=== PATIENT | female | born 1990 | race American Indian/Alaskan Native ===

== ENCOUNTER 2016-10-14 20:23 | Emergency (ER) | payer OTHER ==
[~2016-10-14] VITALS: Ht 160 cm; Wt 72.6 kg
[2016-10-14] MEDS ORDERED: LEXAPRO10 MG ORAL (20:48)
[2016-10-14] MEDS ORDERED: IBUPROFEN600 MG ORAL (21:23)
[2016-10-14] MEDS ORDERED: AUGMENTIN 875-1 EAC1 ORAL (21:23)
[2016-10-14 22:34] VITALS: BP 132/89
[2016-10-14 22:39] VITALS: BP 132/89
--- NOTE | 2016-10-18 19:42 | Emergency Room Report ---
History of Present Illness General Chief Complaint: Animal Bite Source: Patient Present Illness HPI Patient is a 26-year-old female who reportedly was bitten by dog Patient stated the dog appeared well. The patient had up-to-date tetanus vaccine. Injury occurred at work. Patient reported having bites to her chin as well as to her hip as well as to her left wrist The patient denied any numbness or weakness distally. Patient is right-hand dominant. She works as a veterinary tech. Allergies: Coded Allergies: No Known Allergies (Unverified , 10/14/16) Patient History Past Medical History: see triage record Reviewed Nursing Documentation: PMH: Agreed, PSxH: Agreed Nursing Documentation-PMH History Of Psychiatric Problem: Yes Review of Systems All Other Systems: negative except mentioned in HPI Physical Exam Vital Signs Date Time Temp Pulse Resp B/P Pulse Ox O2 Delivery O2 Flow Rate FiO2 10/14/16 20:40 98.8 82 16 142/90 100 Room Air General Appearance: well appearing, no apparent distress, alert, GCS 15 Head: normocephalic, atraumatic ENT: hearing grossly normal, normal voice Neck: full range of motion, supple Respiratory: no respiratory distress, speaking full sentences Cardiovascular #1: normal inspection, normal peripheral pulses, regular rate, rhythm Musculoskeletal: normal inspection, back normal, digits/nails normal, no calf tenderness, other - wrist laceration superficial Neurologic: normal inspection, alert, oriented x3, responsive, normal gait Psychiatric: mood/affect normal Skin: no rash, other - laceration to chin, right lower extremity Medical Decision Making Diagnostic Impression: Primary Impression: Animal bite ER Course Patient presented for animal bites. Patient presented for laceration. Differential diagnoses included foreign body, nerve injury, arterial injury among others. Patient's benign exam and does not appear to require any further imaging or laboratory testing at this time. The patient was in noted to have multiple areas with superficial lacerations which do not appear to require suturing.The patient is advised to follow up with workers comp doctor in 2 days. Patient is advised to return if any worsening condition or if any changes in status that are concerning. Last Vital Signs Date Time Temp Pulse Resp B/P Pulse Ox O2 Delivery O2 Flow Rate FiO2 10/14/16 22:39 98.8 84 14 132/89 96 Room Air Status: improved Disposition: HOME, SELF-CARE Condition: Stable Scripts Ibuprofen* (MOTRIN*) 600 Mg Tablet 600 MG ORAL Q8H Y for For Pain, #30 TAB 0 Refills Prov: Maico Cabrera 10/14/16 Amoxicillin/Potassium Clav 875-125* (AUGMENTIN 875-125 TABLET*) 1 Each Tablet 1 TAB ORAL TWICE A DAY, #28 TAB Prov: Maico Cabrera 10/14/16 Referrals: NON PHYSICIAN (PCP) Patient Instructions: Animal Bite Maico Cabrera Oct 18, 2016 19:42
== END 2016-10-14 22:35 | disposition home or self-care (01) ==
LOC: EMR 21:35
DX: S01.81XA Laceration without foreign body of other part of head, initial encounter (principal); S61.512A Laceration without foreign body of left wrist, initial encounter; S71.011A Laceration without foreign body, right hip, initial encounter; W54.0XXA Bitten by dog, initial encounter; Y92.89 Other specified places as the place of occurrence of the external cause; Y99.0 Civilian activity done for income or pay
CPT/HCPCS: 99284